=== PATIENT | female | born 1965 | race African-American/Black ===

== ENCOUNTER 2024-07-13 12:04 | Emergency (ER) | payer MEDICARE ==
[~2024-07-13] VITALS: Ht 165.1 cm; Wt 90.7 kg
[2024-07-13 12:05] VITALS: PULSE 67; RESP 16; TEMP 97.5; O2SAT 100
[2024-07-13] MEDS: KETOROLAC TROMETHAMINE 60 MG/2 ML VIAL IM ONE (13:54)
== END 2024-07-13 14:52 | disposition home or self-care (01) ==
LOC: ER 12:10
DX: S00.03XA Contusion of scalp, initial encounter (principal); R51.9 Headache, unspecified; M54.50 Low back pain, unspecified; W01.198A Fall on same level from slipping, tripping and stumbling with subsequent striking against other object, initial encounter; Y93.01 Activity, walking, marching and hiking; Y92.531 Health care provider office as the place of occurrence of the external cause; G89.29 Other chronic pain
CPT/HCPCS: 71101; 72110; 99284; J1885